=== PATIENT | male | born 1935 | race Caucasian/White ===

== ENCOUNTER → 2020-08-31 | Outpatient (CLI) | payer OTHER, BC | LOC: SJCVC 13:47 → SJCVCIMAG 13:47 | PROVIDERS: ATTEND Internal Medicine Cardiovascular Disease | DX: I71.4 Abdominal aortic aneurysm, without rupture (principal); I08.0 Rheumatic disorders of both mitral and aortic valves; I48.91 Unspecified atrial fibrillation; I25.119 Atherosclerotic heart disease of native coronary artery with unspecified angina pectoris; E11.9 Type 2 diabetes mellitus without complications; I10 Essential (primary) hypertension; J45.909 Unspecified asthma, uncomplicated; K21.9 Gastro-esophageal reflux disease without esophagitis; M10.9 Gout, unspecified; Z79.84 Long term (current) use of oral hypoglycemic drugs; Z79.899 Other long term (current) drug therapy; Z79.82 Long term (current) use of aspirin ==

== ENCOUNTER → 2020-09-26 | Outpatient (CLI) | payer OTHER, BC | LOC: SJCVCIMAG 08:22 | PROVIDERS: ATTEND Internal Medicine Cardiovascular Disease | DX: I25.10 Atherosclerotic heart disease of native coronary artery without angina pectoris (principal); R00.0 Tachycardia, unspecified; I49.3 Ventricular premature depolarization; I48.91 Unspecified atrial fibrillation; I10 Essential (primary) hypertension; E78.00 Pure hypercholesterolemia, unspecified; Z79.899 Other long term (current) drug therapy ==

== ENCOUNTER 2020-10-23 12:25 | Emergency (ER) | payer OTHER, BC ==
[~2020-10-23] VITALS: Ht 180.3 cm; Wt 68.0 kg
[2020-10-23 12:32] VITALS: BP 110/78
[2020-10-23 13:20] LABS: ABSOLUTE NEUTROPHILS 5.5 thou/uL (1.4-8.2); BASOPHILS 0.5 % (0.0-2.0); HEMATOCRIT 33.8 % (42.0-52.0); HEMOGLOBIN 11.2 gm/dL (14.0-18.0); LYMPHOCYTES 3.6 % (24.0-44.0); MCV 93.8 fL (80.0-100.0); MONOCYTES 6.9 % (1.0-8.0); PLATELET COUNT 262 thou/uL (150-400); RBC 3.61 mil/uL (4.50-6.00); WBC 6.3 thou/uL (4.0-11.0)
[2020-10-23 13:34] LABS: APTT 39.5 Seconds (24.5-32.8); INR 1.4; PROTIME 14.6 Seconds (9.3-11.4)
[2020-10-23 13:36] LABS: ANION GAP 10 mmol/L (7-16); BUN 18 mg/dL (7-18); CALCIUM 9.1 mg/dL (8.5-10.1); CHLORIDE 98 mmol/L (98-107); CO2 23 mmol/L (21-32); CREATININE 0.7 mg/dL (0.7-1.3); GLUCOSE 131 mg/dL (74-106); POTASSIUM 4.5 mmol/L (3.5-5.1); SODIUM 131 mmol/L (136-145)
[2020-10-23 13:40] LABS: ALBUMIN 3.4 g/dL (3.4-5.0); DIRECT BILIRUBIN 0.2 mg/dL (<0.1-0.2); SGOT 22 U/L (15-37); SGPT 14 U/L (30-65); TOTAL BILIRUBIN 0.6 mg/dL (0.2-1.0); TOTAL PROTEIN 6.1 g/dL (6.4-8.2); TROPONIN-I <0.06 ng/mL (<0.06)
[2020-10-23 16:36] LABS: FOLIC ACID 19.3 ng/mL (8.6-58.9)
[2020-10-23 20:06] VITALS: BP 108/62
[2020-10-23] MEDS ORDERED: ALLOPURINOL 30300 M1 PO (20:10)
[2020-10-23] MEDS ORDERED: GLUCOPHAGE1000 MG PO (20:11)
[2020-10-23] MEDS ORDERED: TOPROL XL25 MG PO (20:11)
[2020-10-23] MEDS ORDERED: LIPITOR10 MG PO (20:11)
[2020-10-23] MEDS ORDERED: ASA81BEC PO (20:11)
[2020-10-23] MEDS ORDERED: SODIUM CHLORIDE1 G2 PO (20:12)
[2020-10-23] MEDS ORDERED: OMEPRAZOLE40 MG PO (20:12)
[2020-10-23] MEDS ORDERED: ONGLYZA2.5 MG PO (20:12)
[2020-10-23] MEDS ORDERED: XARELTO20 MG PO (20:13)
[2020-10-23] MEDS ORDERED: FLOMAX0.4 MG PO (20:13)
[2020-10-23] MEDS ORDERED: MAGNESIUM250 M1 PO (20:13)
[2020-10-23] MEDS ORDERED: EXELON1 EAC1 TRANSDERM (20:14)
[2020-10-23 22:48] LABS: URINE BILIRUBIN NEGATIVE (Negative); URINE BLOOD NEGATIVE (Negative); URINE CLARITY CLEAR; URINE COLOR YELLOW; URINE GLUCOSE-RANDOM* NEGATIVE (Negative); URINE KETONES NEGATIVE (Negative); URINE LEUKOCYTES-REFLEX NEGATIVE (Negative); URINE NITRITE-REFLEX NEGATIVE (Negative); URINE PROTEIN (DIPSTICK) NEGATIVE (Negative); URINE SPECIFIC GRAVITY >= 1.030 (1.005-1.035); URINE UROBILINOGEN 0.2 E.U./dl (0.2-1.0)
[2020-10-24 00:07] VITALS: BP 116/66
[2020-10-24 05:19] VITALS: BP 105/75
[2020-10-24 06:30] LABS: ABSOLUTE NEUTROPHILS 6.4 thou/uL (1.4-8.2); BASOPHILS 0.8 % (0.0-2.0); EOSINOPHILS 0.4 % (0.0-3.0); HEMATOCRIT 33.6 % (42.0-52.0); HEMOGLOBIN 11.1 gm/dL (14.0-18.0); LYMPHOCYTES 4.5 % (24.0-44.0); MCH 30.9 pg (26.0-34.0); MCHC 33.2 g/dL (28.0-37.0); MCV 93.1 fL (80.0-100.0); MONOCYTES 9.2 % (1.0-8.0); PLATELET COUNT 336 thou/uL (150-400); POLYS 85.1 % (36.0-66.0); RBC 3.61 mil/uL (4.50-6.00); WBC 7.5 thou/uL (4.0-11.0)
[2020-10-24 06:49] LABS: ANION GAP 9 mmol/L (7-16); BUN 20 mg/dL (7-18); CALCIUM 8.8 mg/dL (8.5-10.1); CHLORIDE 97 mmol/L (98-107); CO2 24 mmol/L (21-32); CREATININE 0.9 mg/dL (0.7-1.3); GLUCOSE 155 mg/dL (74-106); MAGNESIUM 1.5 mg/dL (1.8-2.4); POTASSIUM 4.3 mmol/L (3.5-5.1); SODIUM 130 mmol/L (136-145); TROPONIN-I <0.06 ng/mL (<0.06)
--- NOTE | 2020-10-24 07:03 | NUR ---
PT IN [facility] ON TELE. CARDIZEM GTT TITRATED DOWN TO 5MG/HR DURING THE NIGHT.
[2020-10-24 09:03] VITALS: BP 97/59
[2020-10-24 12:41] VITALS: BP 97/59
[2020-10-24 14:58] VITALS: BP 97/59
--- NOTE | 2020-10-24 16:26 | NUR ---
BODY TAKEN TO [place] BY 2 SECURITY OFFICERS. INFORMED HAVE TRIED TO REACH CORNER OFFICE MULTIPLE TIMES SINCE , ONLY BUSY SIGNAL NOT ABLE TO LEAVE MESSAGE WELL
--- NOTE | 2020-10-30 07:54 | EKG ---
[place] [address] [facility] [place] [address] ELECTROCARDIOGRAM REPORT Name: BRIONNA CASTELAN Room #: [id number] Admission: 10/23/20 Attend Phys: Discharge: 10/24/20 Date of : 35 Report #: [id number] [facility] ED Test Date: 2020-10-23 Test Time: 12:39:38 Pat Name: BRIONNA CASTELAN Department: Room: 170 Gender: M Senior Web Designer: EDER : 1935 Requested By: Mariel Reeder Order Number: [id number] MD: Gerson Rivas Measurements Intervals [place] Rate: 161 P: [place]: QRS: 43 QRSD: 88 T: 73 QT: 333 QTc: 545 Interpretive Statements Atrial fibrillation with rapid V-rate Borderline low voltage, extremity leads ST depression, probably rate related Compared to ECG 07/26/1998 06:44:00 ST (T wave) deviation now present Sinus rhythm no longer present T-wave abnormality no longer present Possible ischemia no longer present Electronically Signed On 10-23-2020 15:32:52 [employer] by Gerson Rivas [email or web address] <ELECTRONICALLY SIGNED> By: Gerson Rivas MD, FACC 10/23/20 1532 [id number] Gerson [email or web address] MD, FAC /EPI
== END 2020-10-24 16:26 ==
LOC: ER 12:25 → EROBS 14:49 → ER 14:49 → EROBS 23:36 → ER 10-24 16:26
PROVIDERS: Emergency Medicine; Hospitalist; Nurse Practitioner
DX: U07.1 COVID-19 (principal); I46.9 Cardiac arrest, cause unspecified; I48.20 Chronic atrial fibrillation, unspecified; J18.9 Pneumonia, unspecified organism; I25.10 Atherosclerotic heart disease of native coronary artery without angina pectoris; E87.1 Hypo-osmolality and hyponatremia; E78.5 Hyperlipidemia, unspecified; J96.00 Acute respiratory failure, unspecified whether with hypoxia or hypercapnia; R41.89 Other symptoms and signs involving cognitive functions and awareness; M35.3 Polymyalgia rheumatica; I25.2 Old myocardial infarction; E11.9 Type 2 diabetes mellitus without complications; I70.90 Unspecified atherosclerosis; Z79.899 Other long term (current) drug therapy; Z79.82 Long term (current) use of aspirin; Z88.0 Allergy status to penicillin; Z95.5 Presence of coronary angioplasty implant and graft; Z87.891 Personal history of nicotine dependence